=== PATIENT | female | born 1980 | race Caucasian/White ===

== ENCOUNTER 2018-11-07 09:30 | Emergency (ER) | payer OTHER ==
[2018-11-07 09:35] VITALS: BP 119/65; PULSE 105; TEMP 98.7; BMI 37.2
--- NOTE | 2018-11-07 10:08 | PDOC ---
History of Present Illness - General Chief Complaint: Vaginal Sxs Stated Complaint: POSSIBLE INFECTION Time Seen by Provider: 11/07/18 09:49 Past History - Past Medical History Allergies/Adverse Reactions: Allergies Allergy/AdvReac Type Severity Reaction Status Date / Time No Known Allergies Allergy Verified 11/07/18 09:31 Home Medications: Ambulatory Orders metroNIDAZOLE 0.75% VAG. GEL [Metrogel 0.75% *Vaginal Gel* -] 1 applic VG BID # 1 tube 11/07/18 Asthma: No Cancer: No Cardiac Disorders: No COPD: No Diabetes: No HTN: No Seizures: No Thyroid Disease: No - Surgical History Cholecystectomy: Yes - Reproductive History (#): 3 Para: 1 - Immunization History Immunization Up to Date: Yes - Suicide/Smoking/Psychosocial Hx Smoking Status: No Smoking History: Never smoked Have you smoked in the past 12 months: No Number of Cigarettes Smoked Daily: 0 Information on smoking cessation initiated: No Hx Alcohol Use: No Drug/Substance Use Hx: No Substance Use Type: None Hx Substance Use Treatment: No *Physical Exam - Vital Signs Last Vital Signs Temp Pulse Resp BP Pulse Ox 98.7 F 105 H 17 119/65 99 11/07/18 09:32 11/07/18 09:32 11/07/18 09:32 11/07/18 09:32 11/07/18 09:32 *DC/Admit/Observation/Transfer Diagnosis at time of Disposition: Vaginal infection - Discharge Dispostion Disposition: HOME Condition at time of disposition: Stable Decision to Admit order: No - Referrals Referrals: Shakir Vazquez MD [Primary Care Provider] - - Patient Instructions Printed Discharge Instructions: DI for Vaginal Discharge Additional Instructions: You were evaluated for your vaginal discharge today Please use the Metrogel to the area twice a day Please call for your HIV results Please keep your follow up with your [employer] Return to the ED for any new or worsening symptoms - Post Discharge Activity Forms/Work/School Notes: Back to Work
[2018-11-07 11:27] LABS: URINE APPEARANCE Slightly Cloudy; URINE BILIRUBIN Negative (NEGATIVE); URINE COLOR Yellow; URINE GLUCOSE (UA) Negative (NEGATIVE); URINE KETONE Negative (NEGATIVE); URINE LEUK ESTERASE 3+ (NEGATIVE); URINE NITRITE Negative (NEGATIVE); URINE PROTEIN 2+ (NEGATIVE); URINE UROBILINOGEN 0.2 mg/dL (0.2-1.0)
[2018-11-07 12:04] LABS: EPI CELLS FEW /HPF (0-5/HPF); URINE BACTERIA MANY /hpf (NEGATIVE); URINE RBC 5 /hpf (0-4); URINE WBC 30 /hpf (0-5)
== END 2018-11-07 11:00 | disposition home or self-care (01) ==
LOC: JERFT 09:30
DX: N76.0 Acute vaginitis (principal)
CPT/HCPCS: 36415; 81003; 84703; 87070; 87086; 87205; 87389; 87491; 87591; 99281-25